=== PATIENT | female | born 1955 | race Caucasian/White ===

== ENCOUNTER 2019-12-02 16:35 | Emergency (ER) | payer OTHER ==
[~2019-12-02] VITALS: Ht 172.7 cm; Wt 99.8 kg
[~2019-12-02 16:35] MED LIST: AMLO10TA PO; LOSA25TA32 PO; PHEN30CA15 PO; PRED20TA5 PO
--- NOTE | 2019-12-02 17:05 | NUR ---
64 Y/O FEMALE C/O RIGHT SIDED NECK PAIN. PT STATES IT BEGAN THIS MORNING AND PROGRESSIVELY GOT BIGGER AND MORE PAINFUL. RIGHT SIDE OF NECK IS SWOLLEN AND TENDER AND ERYTHEMATOUS. SKIN INTACT. ORAL INSPECTION IS UNREMARKABLE. DENIES ANY CHANGES TO HEARING. NO SOB/CP/N/V/D.
[2019-12-02 17:10] VITALS: BP 149/60
--- NOTE | 2019-12-02 17:22 | NUR ---
Patient ambulated to bed 10. RN evaluating patient at bedside.
[2019-12-02] MEDS ORDERED: KETOROLAC 30 MG/ML VIAL IM ONE (17:45)
[2019-12-02 18:10] VITALS: BP 135/47
--- NOTE | 2019-12-02 18:11 | NUR ---
Patient discharged with v/s stable. Written and verbal after care instructions given and explained. Patient alert, oriented and verbalized understanding of instructions. Ambulatory with steady gait. All questions addressed prior to discharge. ID band removed. Patient advised to follow up with PMD. Rx of AUGMENTIN, IBUPROFEN given. Patient educated on indication of medication including possible reaction and side effects. Opportunity to ask questions provided and answered.
== END 2019-12-02 18:11 | disposition home or self-care (01) ==
LOC: MED 16:35
DX: K11.20 Sialoadenitis, unspecified (principal); R22.0 Localized swelling, mass and lump, head; I10 Essential (primary) hypertension; Z79.899 Other long term (current) drug therapy; Z88.8 Allergy status to other drugs, medicaments and biological substances
CPT/HCPCS: 96372; 99283; J1885